=== PATIENT | male | born 1965 | race Caucasian/White ===

== ENCOUNTER 2024-04-07 06:41 | Day surgery (SDC) | payer BC ==
[2024-03-30 15:30] VITALS: BMI 29.0
[2024-04-07] MEDS ORDERED: TRANEXAMIC ACID 1000 MG/10 ML VIAL ONE (06:52)
[2024-04-07] MEDS ORDERED: DEXAMETHASONE SOD PHOSPHATE 4 MG/1 ML VIAL ONE ×2 (06:52→07:04)
[2024-04-07] MEDS ORDERED: ROCURONIUM BROMIDE 50 MG/5 ML SYRINGE ONE ×2 (06:52→09:30)
[2024-04-07] MEDS ORDERED: ceFAZolin SODIUM 1 GM VIAL ONE (06:52)
[2024-04-07] MEDS ORDERED: LIDOCAINE HCL/PF 2% SDV 5ML VIAL ONE (06:52)
[2024-04-07] MEDS ORDERED: ONDANSETRON 4 MG/2 ML VIAL ONE (06:52)
[2024-04-07] MEDS ORDERED: METOCLOPRAMIDE HCL INJECTION 10 MG/2 ML VIAL ONE (06:52)
[2024-04-07] MEDS ORDERED: SUCCINYLCHOLINE CHLORIDE 200 MG/10 ML SYRINGE ONE (06:56)
[2024-04-07] MEDS ORDERED: PROPOFOL 20 ML ONE ×2 (06:57→07:55)
[2024-04-07] MEDS ORDERED: SODIUM CHLORIDE 0.9% P/F 10 ML VIAL IJ ONE (06:57)
[2024-04-07] MEDS ORDERED: MIDAZOLAM HCL 2 MG/2 ML SINGLE DOSE VIAL ONE (06:58)
[2024-04-07] MEDS ORDERED: ROPIVACAINE HCL/PF 100 MG/20 ML VIAL ONE (07:04)
[2024-04-07] MEDS ORDERED: ACETAMINOPHEN INJECTION 100 ML IVPB ONE (07:05)
[2024-04-07] MEDS ORDERED: EPINEPHrine 1:1,000 1,000 MCG/ML ML ONE (07:17)
[2024-04-07] MEDS ORDERED: GLYCOPYRROLATE 0.2 MG/1 ML VIAL ONE (08:23)
[2024-04-07] MEDS ORDERED: oxyCODONE HCL 5 MG TABLET PO PRN ×2 (08:38)
[2024-04-07] MEDS ORDERED: LACTATED RINGERS SOLUTION 1,000 ML IV SCH (08:45)
[2024-04-07] MEDS ORDERED: SUGAMMADEX SODIUM 200 MG/2 ML VIAL ONE (10:28)
[2024-04-07] MEDS ORDERED: FENTANYL CITRATE/PF 50 MCG/ML VIAL ONE (11:07)
[2024-04-07 11:43] VITALS: RESP 18
[2024-04-07 12:27] VITALS: BP 128/71; PULSE 73; TEMP 96.9
== END 2024-04-07 12:57 | disposition home or self-care (01) ==
LOC: FASU 06:41
PROVIDERS: ATTEND Orthopaedic Surgery Sports Medicine
PROC: 0RBJ4ZZ Excision of Right Shoulder Joint, Percutaneous Endoscopic Approach (ICD-10-PCS; principal; 2024-04-07 08:21)
PROC: 0RNJ4ZZ Release Right Shoulder Joint, Percutaneous Endoscopic Approach (ICD-10-PCS; 2024-04-07 08:21)
DX: M75.101 Unspecified rotator cuff tear or rupture of right shoulder, not specified as traumatic (principal); M75.21 Bicipital tendinitis, right shoulder; M24.111 Other articular cartilage disorders, right shoulder; M75.01 Adhesive capsulitis of right shoulder; M65.811 Other synovitis and tenosynovitis, right shoulder
CPT/HCPCS: 94760; C1713; C1763; C1883; J0131